=== PATIENT | male | born 1980 | race African-American/Black ===

== ENCOUNTER 2016-11-30 16:16 | Emergency (ER) | payer SELFPAY ==
[~2016-11-30] VITALS: Ht 180.3 cm; Wt 79.4 kg
[2016-11-30 17:08] VITALS: BP 115/85
--- NOTE | 2016-11-30 17:11 | PHYS DOC ---
Past Medical History Past Medical History: No Pertinent History Additional Past Medical Histor: BACK PAIN, KNEE PAIN, Past Surgical History: No Surgical History Alcohol Use: Occasionally Drug Use: None Adult General Chief Complaint Chief Complaint: ABSCESS HPI HPI Patient is a 36 year old male presents with an abscess to right mid thoracic back since Friday. Denies fever, chills, or recent antibiotic use. Reports abscess history in past. Review of Systems Review of Systems Constitutional: Denies fever or chills Eyes: Denies change in visual acuity, redness, or eye pain HENT: Denies nasal congestion or sore throat Respiratory: Denies cough or shortness of breath Cardiovascular: No additional information not addressed in HPI GI: Denies abdominal pain, nausea, vomiting, bloody stools or diarrhea : Denies dysuria or hematuria Musculoskeletal: Denies back pain or joint pain Integument: Abscess to back Neurologic: Denies headache, focal weakness or sensory changes [] Endocrine: Denies polyuria or polydipsia [] Current Medications Current Medications Current Medications Medications (Trade) Dose Ordered Sig/Jose Start Time Stop Time Status Last Admin Dose Admin Lidocaine/Sodium Bicarbonate (Buffered Lidocaine 1%) 20 ml 1X ONCE 11/30/16 17:15 11/30/16 17:16 DC 11/30/16 17:15 20 ML Allergies Allergies Allergies Coded Allergies Type Severity Reaction Last Updated Verified No Known Drug Allergies 01/10/14 No Physical Exam Physical Exam Constitutional: Well developed, well nourished, no acute distress, non-toxic appearance. HENT: Normocephalic, atraumatic, bilateral external ears normal, oropharynx moist, no oral exudates, nose normal. [] Eyes: PERRLA, EOMI, conjunctiva normal, no discharge. Neck: Normal range of motion, no tenderness, supple, no stridor. Cardiovascular:Heart rate regular rhythm, no murmur Lungs & Thorax: Bilateral breath sounds clear to auscultation Abdomen: Bowel sounds normal, soft, no tenderness, no masses, no pulsatile masses. Skin: 1.5 cm diameter abscess to right thoracic paraspinous. Back: No tenderness, no CVA tenderness. [] Extremities: No tenderness, no cyanosis, no clubbing, ROM intact, no edema. [] Neurologic: Alert and oriented X 3, normal motor function, normal sensory function, no focal deficits noted. [] Psychologic: Affect normal, judgement normal, mood normal. [] Current Patient Data Vital Signs Vital Signs Date Time Temp Pulse Resp B/P Pulse Ox O2 Delivery O2 Flow Rate FiO2 11/30/16 17:08 98.2 58 16 99 Room Air 98.2 EKG EKG [] Radiology/Procedures Radiology/Procedures Procedure note: 1.5cm abscess anesthetized with 1% buffered lidocaine and incised with #11 scapel. Small amount of thick white discharge expelled. Flushed iwth 50ml NS, and packed with 1/4 Iodoform. Patient tolerated well without diffiuclty. [] Impressions: 1. Abscess Course & Med Decision Making Course & Med Decision Making Pertinent Labs and Imaging studies reviewed. (See chart for details) [] Dragon Disclaimer Dragon Disclaimer This electronic medical record was generated, in whole or in part, using a voice recognition dictation system. Departure Departure Impression: Primary Impression: Cutaneous abscess Disposition: HOME, SELF-CARE Condition: STABLE Referrals: NO PCP (PCP) Patient Instructions: Abscess, Care After, Abscess, [id number] Additional Instructions: 1. Take medication as prescribed. 2. Remove packing in 48 hours 3. Return if problems or concerns. 4. Follow up with primary in 1-2 days Scripts Cephalexin 500 Mg Capsule1 Cap PO QID #40 CAP Prov:SILVINO LOUIS APRN 11/30/16 Problem Qualifiers Primary Impression: Cutaneous abscess Site of cutaneous abscess: trunk Site of cutaneous abscess of trunk: back Qualified Code: L02.212 - Cutaneous abscess of back [any part, except buttock] SILVINO LOUIS APRN Nov 30, 2016 17:11
[2016-11-30] MEDS ORDERED: LIDOCAINE 1% / SOD BICARB 8.4% 20 ML VIAL. IJ ONE (17:15)
[2016-11-30] MEDS ORDERED: CEPH500C PO (17:30)
== END 2016-11-30 17:46 | disposition home or self-care (01) ==
LOC: ER 16:16
DX: L02.212 Cutaneous abscess of back [any part, except buttock and flank] (principal)
CPT/HCPCS: 10060; 99283-25

== ENCOUNTER 2017-01-22 05:53 | Emergency (ER) | payer SELFPAY ==
[~2017-01-22] VITALS: Ht 180.3 cm; Wt 79.4 kg
[~2017-01-22 05:53] MED LIST: CEPH500C PO
[2017-01-22 06:10] VITALS: BP 134/86
--- NOTE | 2017-01-22 07:01 | PHYS DOC ---
Past Medical History Past Medical History: Other Additional Past Medical Histor: BACK PAIN, KNEE PAIN, Past Surgical History: No Surgical History Alcohol Use: Occasionally Drug Use: None Adult General Chief Complaint Chief Complaint: EARACHE/EAR PAIN [facility] HPI Patient is a 36 year old male who presents with ear pain. He states that when he was a child he injured his right ear when he had a cockroach crawled in it and they had to drown to it and remove it. He states ever since then he said some sensitivity in his right ear when he was riding the car and would hear the wind go by by his ear. He states he lost part of an ear ringing in his left ear and had adequate removed with forceps by a healthcare provider. 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 He states when the dumpster hits the garbage truck makes a loud metal noise and then when it sits back down on the ground again another loud noises heard. He states the noise makes his ears ringing and cause some discomfort for approximately 1 hour afterwards. He is requesting to be able to wear his removable over the ear hearing protectors when doing the above process. He states that his worker's requiring a note in order to wear this protection from a doctor. Currently he denies any pain, troubles with his ears, fevers chills nausea or vomiting. Review of Systems Review of Systems Constitutional: Denies fever or chills [] Eyes: Denies change in visual acuity, redness, or eye pain [] HENT: Denies nasal congestion or sore throat [] Respiratory: Denies cough or shortness of breath [] Cardiovascular: No additional information not addressed in HPI [] GI: Denies abdominal pain, nausea, vomiting, bloody stools or diarrhea [] : Denies dysuria or hematuria [] Musculoskeletal: Denies back pain or joint pain [] Integument: Denies rash or skin lesions [] Neurologic: Denies headache, focal weakness or sensory changes [] Endocrine: Denies polyuria or polydipsia [] Allergies Allergies Allergies Coded Allergies Type Severity Reaction Last Updated Verified No Known Drug Allergies 2/17/14 No Physical Exam Physical Exam Constitutional: Well developed, well nourished, no acute distress, non-toxic appearance. [] HENT: Normocephalic, atraumatic, right ear canal with mild to moderate cerumen or granulation tissue within the ear canal itself is reducing the size the ear canal by 25%, left TM normal-appearing with normal ear canal, bilateral external ears normal, oropharynx moist, no oral exudates, nose normal. [] Eyes: PERRLA, EOMI, conjunctiva normal, no discharge. [] Neck: Normal range of motion, no tenderness, supple, no stridor. [] Skin: Warm, dry, no erythema, no rash. [] Back: No tenderness, no CVA tenderness. [] Extremities: No tenderness, no cyanosis, no clubbing, ROM intact, no edema. [] Neurologic: Alert and oriented X 3, normal motor function, normal sensory function, no focal deficits noted. [] Psychologic: Affect normal, judgement normal, mood normal. [] Current Patient Data Vital Signs Vital Signs Date Time Temp Pulse Resp B/P Pulse Ox O2 Delivery O2 Flow Rate FiO2 01/22/17 06:10 97.2 60 16 99 Room Air 97.2 EKG EKG [] Radiology/Procedures Radiology/Procedures [] Impressions: Ear pain while working Course & Med Decision Making Course & Med Decision Making Pertinent Labs and Imaging studies reviewed. (See chart for details) I am not able to assess his hearing status in the emergency department. He is requesting a note to be able to wear his hearing protection while doing jobs with loud noises. I'm unsure if this interferes with his abilities perform his job safely. I recommend that he follow with an stitch marker and with his OSHA provider to make sure that this doesn't interfere with his job duties or his safety at work. I will write him a note states only during these 2 episodes of loud noises when the dumpster hits a truck and a suspect down that he can wear his hearing protector but he must take it off otherwise for his own safety. This of course cannot interfere with his job duties or with OSHA requirements and standards. 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 He can follow-up with Dr. Jay at [phone] and please call her office and tell her that you are from [place] any need to schedule appointment. Gavin Disclaimer Delfinoon Disclaimer This electronic medical record was generated, in whole or in part, using a voice recognition dictation system. 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 You will need to remove your hearing protection when not doing this task. I do not want you to wear your hearing protection at other times, other than dumping the dumpster into the truck and setting it back on the ground, as it can interfere with your safety and the safety of the other people around you if you cannot hear the people around you trying to talk to you. You will need to contact your OSHA sales representative livestock to make sure that this does not interfere with your safety on the job and the safety of the other people around you. You will also need to follow-up with an stitch marker and an ears nose and throat physician to look at the mass the your right ear canal and have a hearing test preformed. If policies are in place by your work place or OSHA that prevents you from wearing your hearing protection during this process than their policies supersedes my recommendations. You can follow-up with Dr. Jay at [phone] and please call her office and tell her that you are from [place] any need to schedule appointment. JUNIOR ARANA MD Jan 22, 2017 07:01
== END 2017-01-22 07:22 | disposition home or self-care (01) ==
LOC: ER 05:53
DX: H93.8X1 Other specified disorders of right ear (principal)
CPT/HCPCS: 99281

== ENCOUNTER 2017-10-24 19:40 | Emergency (ER) | payer SELFPAY ==
[~2017-10-24] VITALS: Ht 180.3 cm; Wt 81.6 kg
[2017-10-24] MEDS ORDERED: NAPR-683 PO (20:21)
[2017-10-24] MEDS ORDERED: SULF1TAB24 PO (20:21)
--- NOTE | 2017-10-24 20:21 | PHYS DOC ---
Past Medical History Past Medical History: Other Additional Past Medical Histor: BACK PAIN, KNEE PAIN, Past Surgical History: No Surgical History Alcohol Use: Occasionally Drug Use: None Adult General Chief Complaint Chief Complaint: SKIN RASH/ABSCESS [facility] HPI Patient is a 37 year old male presents to the emergency department with complaints of an abscess on the chest. He states his been present for 3 days. He 's had no fever. He reports a long-standing history of intermittent abscesses. Review of Systems Review of Systems Constitutional: Denies fever or chills [] Eyes: Denies change in visual acuity, redness, or eye pain [] HENT: Denies nasal congestion or sore throat [] Respiratory: Denies cough or shortness of breath [] Cardiovascular: No additional information not addressed in HPI [] GI: Denies abdominal pain, nausea, vomiting, bloody stools or diarrhea [] : Denies dysuria or hematuria [] Musculoskeletal: Denies back pain or joint pain [] Integument: Abscess Neurologic: Denies headache, focal weakness or sensory changes [] Endocrine: Denies polyuria or polydipsia [] All other systems were reviewed and found to be within normal limits, except as documented in this note. Allergies Allergies Allergies Coded Allergies Type Severity Reaction Last Updated Verified No Known Drug Allergies 01/10/14 No Physical Exam Physical Exam Constitutional: Well developed, well nourished, no acute distress, non-toxic appearance. [] Neck: Normal range of motion, no tenderness, supple without lymphadenopathy, no stridor. [] Cardiovascular:Heart rate regular rhythm, no murmur [] Lungs & Thorax: Bilateral breath sounds clear to auscultation [] Skin: Warm, dry, upper chest, medial, 1 cm pustule no surrounding erythema. EKG EKG [] Radiology/Procedures Radiology/Procedures [] Course & Med Decision Making Course & Med Decision Making Procedure note: The pustule cleansed with Betadine. A #18-gauge used to perforate the pustule. Small amount of purulent discharge. Patient tolerated well. Dressing applied. Pertinent Labs and Imaging studies reviewed. (See chart for details) [] Dragon Disclaimer Dragon Disclaimer This electronic medical record was generated, in whole or in part, using a voice recognition dictation system. Departure Departure Impression: Primary Impression: Cutaneous abscess Disposition: HOME, SELF-CARE Condition: STABLE Referrals: NO PCP (PCP) [facility] [place] Patient Instructions: Abscess, Care After Scripts Naproxen (NAPROSYN) 500 Mg Tablet 500 MG PO BID Y for PAIN, #20 TAB Prov: RAJESH GALLO APRN 10/24/17 Sulfamethoxazole/Trimethoprim (BACTRIM DS TABLET) 1 Each Tablet 1 TAB PO BID, #20 TAB Prov: RAJESH GALLO APRN 10/24/17 Problem Qualifiers Primary Impression: Cutaneous abscess Site of cutaneous abscess: trunk Site of cutaneous abscess of trunk: chest wall Qualified Codes: L02.213 - Cutaneous abscess of chest wall RAJESH GALLO APRN Oct 24, 2017 20:21
[2017-10-24 20:46] VITALS: BP 121/80
== END 2017-10-24 20:55 | disposition home or self-care (01) ==
LOC: ER 19:40
DX: L02.213 Cutaneous abscess of chest wall (principal)
CPT/HCPCS: 10160; 99284-25

== ENCOUNTER 2017-11-05 10:23 | Emergency (ER) | payer SELFPAY ==
[~2017-11-05] VITALS: Ht 180.3 cm; Wt 79.4 kg
[~2017-11-05 10:23] MED LIST changes: +NAPR-683 PO; +SULF1TAB24 PO
[2017-11-05 10:37] VITALS: BP 133/81
[2017-11-05] MEDS ORDERED: [UNRECOGNIZED DRUG - CODE] MC (10:55)
[2017-11-05] MEDS ORDERED: FLUC200T4 PO (10:55)
--- NOTE | 2017-11-05 10:55 | PHYS DOC ---
Past Medical History Past Medical History: Other Additional Past Medical Histor: BACK PAIN, KNEE PAIN, Past Surgical History: No Surgical History Alcohol Use: None Drug Use: None Adult General Chief Complaint Chief Complaint: SKIN RASH/ABSCESS HPI HPI Patient is a 37 year old -[place] male with no significant medical history who presents today complaining of patch like rash on his face and neck that began a week ago. Patient denies any known cause for this rash. Review of Systems Review of Systems Constitutional: Denies fever or chills [] Musculoskeletal: Denies back pain or joint pain [] Integument: patch like rash on his face and neck Neurologic: Denies headache, focal weakness or sensory changes [] All other systems were reviewed and found to be within normal limits, except as documented in this note. Allergies Allergies Allergies Coded Allergies Type Severity Reaction Last Updated Verified No Known Drug Allergies 01/10/14 No Physical Exam Physical Exam Constitutional: Well developed, well nourished, no acute distress, non-toxic appearance. [] Skin: Warm, dry, this is an male with patch like discoloration lesions on the face and neck suspicious of tinea versicolor. Back: No tenderness, no CVA tenderness. [] Extremities: No tenderness, no cyanosis, no clubbing, ROM intact, no edema. [] Neurologic: Alert and oriented X 3, normal motor function, normal sensory function, no focal deficits noted. [] Psychologic: Affect normal, judgement normal, mood normal. [] Current Patient Data Vital Signs Vital Signs Date Time Temp Pulse Resp B/P (MAP) Pulse Ox O2 Delivery O2 Flow Rate FiO2 11/05/17 10:37 98.0 69 18 99 Room Air 98.0 EKG EKG [] Radiology/Procedures Radiology/Procedures [] Course & Med Decision Making Course & Med Decision Making Pertinent Labs and Imaging studies reviewed. (See chart for details) Patient has tinea vesicular rash on his face. He was discharged with fluconazole and ketoconazole. Patient was provided a carry out clerk for follow- up in the next 2-4 weeks. Dragon Disclaimer Dragon Disclaimer This electronic medical record was generated, in whole or in part, using a voice recognition dictation system. Departure Departure Impression: Primary Impression: Tinea versicolor Disposition: HOME, SELF-CARE Condition: STABLE Referrals: NO PCP (PCP) MARC MILLS MD follow up in 2-4 weeks Patient Instructions: Tinea Versicolor (Yeast Infection of the Skin) Additional Instructions: You were seen with a rash suspicious of tinea versicolor. Use the prescribed medication as ordered. Follow-up with the provided carry out clerk in the next 2- 4 weeks. Scripts Ketoconazole (Ketoconazole) 25 Gm Crystals 25 GM MC BID, #1 MISC 1 Refill Use until lessions have cleared completely Prov: ERIC JONES APRN 11/05/17 Fluconazole (FLUCONAZOLE) 200 Mg Tablet 400 TAB PO ONCE, #2 TAB Prov: ERIC JONES APRN 11/05/17 ERIC JONES APRN Nov 05, 2017 10:55
== END 2017-11-05 11:05 | disposition home or self-care (01) ==
LOC: ER 10:23
DX: B36.0 Pityriasis versicolor (principal)
CPT/HCPCS: 99283

== ENCOUNTER 2017-12-29 23:11 | Emergency (ER) | payer SELFPAY ==
[2017-12-29 23:49] LABS: ADD MAN DIFF? NO
[2017-12-29 23:53] LABS: BASO # 0.1 x10^3/uL (0.0-0.2); BASO % 2 % (0-3); BILIRUBIN,URINE NEGATIVE (NEG); CLARITY,URINE CLEAR; COLOR,URINE YELLOW; EOS # 0.1 x10^3/uL (0.0-0.7); EOS % 2 % (0-3); GLUCOSE,URINE NEGATIVE (NEG); HEMATOCRIT 45.6 % (39.0-53.0); HEMOGLOBIN 15.7 g/dL (13.0-17.5); LYMPH # 1.3 x10^3/uL (1.0-4.8); LYMPH % 17 % (24-48); MEAN CORPUSCULAR HEMOGLOBIN 34 pg (25-35); MEAN CORPUSCULAR HGB CONC 34 g/dL (31-37); MEAN CORPUSCULAR VOLUME 99 fL (79-100); MONO # 0.5 x10^3/uL (0.0-1.1); MONO % 6 % (0-9); NEUT # 5.6 x10^3uL (1.8-7.7); NEUT % 73 % (31-73); NITRITE,URINE NEGATIVE (NEG); PH,URINE 5.5; PLATELET COUNT 385 x10^3/uL (140-400); PROTEIN,URINE NEGATIVE (NEG-TRACE); RED BLOOD COUNT 4.62 x10^6/uL (4.30-5.70); RED CELL DISTRIBUTION WIDTH 15.3 % (11.5-14.5); UROBILINOGEN,URINE 0.2 mg/dL (0.2 mg/dL); WHITE BLOOD COUNT 7.6 x10^3/uL (4.0-11.0)
[2017-12-29 23:57] LABS: BACTERIA,URINE 0 /HPF (0-FEW); HYALINE CASTS, URINE FEW /HPF; RBC,URINE 0 /HPF (0-2); SQUAMOUS EPITHELIAL CELL,UR OCC /LPF; WBC,URINE OCC /HPF (0-4)
[2017-12-29 23:59] LABS: BARBITURATES NEG (NEG); BENZODIAZEPINES NEG (NEG); CANNABINOIDS NEG (NEG); COCAINE POS (NEG); METHADONE NEG (NEG); OPIATES NEG (NEG); PHENCYCLIDINE NEG (NEG)
[2017-12-30] LABS: AMPHETAMINE/METHAMPHETAMINE NEG (NEG); ETHANOL, URINE POS (NEG)
[2017-12-30 00:06] LABS: ANION GAP 16 (6-14); BLOOD UREA NITROGEN 21 mg/dL (8-26); BUN/CREATININE RATIO 16 (6-20); CALCIUM 9.6 mg/dL (8.5-10.1); CARBON DIOXIDE 23 mmol/L (21-32); CHLORIDE 103 mmol/L (98-107); CREATININE 1.3 mg/dL (0.7-1.3); GFR 74.4; GLUCOSE 114 mg/dL (70-99); POTASSIUM 3.5 mmol/L (3.5-5.1); SODIUM 142 mmol/L (136-145)
[2017-12-30 00:11] LABS: ETHANOL 102 mg/dL (0-10)
[2017-12-30 00:12] LABS: ALBUMIN 4.4 g/dL (3.4-5.0); ALK PHOS 61 U/L (46-116); ALT (SGPT) 68 U/L (16-63); AST (SGOT) 60 U/L (15-37); TOTAL BILIRUBIN 0.2 mg/dL (0.2-1.0)
[2017-12-30] MEDS: IV NORMAL SALINE 1000ML BAG 1,000 ML IV ×2 (00:12)
== END 2017-12-30 01:25 | disposition left against medical advice (07) ==
LOC: ER 23:11
DX: R45.851 Suicidal ideations (principal); F10.10 Alcohol abuse, uncomplicated; F14.10 Cocaine abuse, uncomplicated; F32.9 Major depressive disorder, single episode, unspecified; F20.9 Schizophrenia, unspecified; F17.200 Nicotine dependence, unspecified, uncomplicated; Y90.5 Blood alcohol level of 100-119 mg/100 ml
CPT/HCPCS: 36415; 80053; 80307; 81001; 85025; 93005; 96361; 96374; 99285-25; G0480; J2060; J7030

== ENCOUNTER 2018-02-05 22:33 | Emergency (ER) | payer SELFPAY ==
[2018-02-05 23:26] LABS: ADD MAN DIFF? NO
[2018-02-05 23:28] LABS: BASO # 0.1 x10^3/uL (0.0-0.2); BASO % 1 % (0-3); EOS # 0.2 x10^3/uL (0.0-0.7); EOS % 2 % (0-3); HEMATOCRIT 45.5 % (39.0-53.0); HEMOGLOBIN 15.4 g/dL (13.0-17.5); LYMPH # 2.5 x10^3/uL (1.0-4.8); LYMPH % 27 % (24-48); MEAN CORPUSCULAR HEMOGLOBIN 34 pg (25-35); MEAN CORPUSCULAR HGB CONC 34 g/dL (31-37); MEAN CORPUSCULAR VOLUME 101 fL (79-100); MONO # 0.6 x10^3/uL (0.0-1.1); MONO % 6 % (0-9); NEUT # 5.9 x10^3uL (1.8-7.7); NEUT % 64 % (31-73); PLATELET COUNT 358 x10^3/uL (140-400); RED BLOOD COUNT 4.52 x10^6/uL (4.30-5.70); RED CELL DISTRIBUTION WIDTH 14.8 % (11.5-14.5); WHITE BLOOD COUNT 9.3 x10^3/uL (4.0-11.0)
[2018-02-05] MEDS: IV NORMAL SALINE 1000ML BAG 1,000 ML IV ×2 (23:30)
[2018-02-05 23:35] LABS: ANION GAP 10 (6-14); BLOOD UREA NITROGEN 9 mg/dL (8-26); BUN/CREATININE RATIO 8 (6-20); CALCIUM 8.8 mg/dL (8.5-10.1); CARBON DIOXIDE 25 mmol/L (21-32); CHLORIDE 106 mmol/L (98-107); CREATININE 1.1 mg/dL (0.7-1.3); GFR 90.2; GLUCOSE 98 mg/dL (70-99); POTASSIUM 3.3 mmol/L (3.5-5.1); SODIUM 141 mmol/L (136-145)
[2018-02-05 23:37] LABS: BILIRUBIN,URINE NEGATIVE (NEG); CLARITY,URINE CLEAR; COLOR,URINE YELLOW; GLUCOSE,URINE NEGATIVE (NEG); NITRITE,URINE NEGATIVE (NEG); PROTEIN,URINE 30 mg/dL (NEG-TRACE); UROBILINOGEN,URINE 0.2 mg/dL (0.2 mg/dL)
[2018-02-05 23:40] LABS: ETHANOL 209 mg/dL (0-10)
[2018-02-05 23:41] LABS: ALBUMIN/GLOBULIN RATIO 0.9 (1.0-1.7); ALK PHOS 61 U/L (46-116); ALT (SGPT) 70 U/L (16-63); AST (SGOT) 35 U/L (15-37); LIPASE 108 U/L (73-393); TOTAL BILIRUBIN 0.1 mg/dL (0.2-1.0); TOTAL PROTEIN 8.3 g/dL (6.4-8.2)
[2018-02-05 23:42] LABS: BACTERIA,URINE 0 /HPF (0-FEW); RBC,URINE 0 /HPF (0-2); SQUAMOUS EPITHELIAL CELL,UR FEW /LPF; WBC,URINE OCC /HPF (0-4)
[2018-02-05 23:43] LABS: AMORPHOUS SEDIMENT,UR PRESENT /HPF; AMPHETAMINE/METHAMPHETAMINE NEG (NEG); BARBITURATES NEG (NEG); BENZODIAZEPINES NEG (NEG); CANNABINOIDS NEG (NEG); COCAINE POS (NEG); ETHANOL, URINE POS (NEG); HYALINE CASTS, URINE MODERATE /HPF; METHADONE NEG (NEG); OPIATES NEG (NEG); PHENCYCLIDINE NEG (NEG)
== END 2018-02-06 00:55 | disposition home or self-care (01) ==
LOC: ER 02-06 00:55
DX: F10.10 Alcohol abuse, uncomplicated (principal); F14.10 Cocaine abuse, uncomplicated; R45.851 Suicidal ideations; R00.0 Tachycardia, unspecified; Y90.7 Blood alcohol level of 200-239 mg/100 ml
CPT/HCPCS: 36415; 71045; 80053; 80307; 81001; 83690; 85025; 93005; 96360; 99285-25; G0480; J7030

== ENCOUNTER 2018-02-20 21:20 | Emergency (ER) | payer SELFPAY ==
[2018-02-20 21:50] LABS: ADD MAN DIFF? NO
[2018-02-20 21:53] LABS: BASO % 0 % (0-3); EOS # 0.1 x10^3/uL (0.0-0.7); EOS % 2 % (0-3); HEMATOCRIT 46.9 % (39.0-53.0); HEMOGLOBIN 15.9 g/dL (13.0-17.5); LYMPH # 2.4 x10^3/uL (1.0-4.8); LYMPH % 39 % (24-48); MEAN CORPUSCULAR HEMOGLOBIN 34 pg (25-35); MEAN CORPUSCULAR HGB CONC 34 g/dL (31-37); MEAN CORPUSCULAR VOLUME 100 fL (79-100); MONO # 0.5 x10^3/uL (0.0-1.1); MONO % 9 % (0-9); NEUT % 50 % (31-73); PLATELET COUNT 358 x10^3/uL (140-400); RED CELL DISTRIBUTION WIDTH 14.5 % (11.5-14.5)
[2018-02-20] MEDS ORDERED: LABETALOL 20 MG/4 ML DISP.SYRIN. IVP (22:00)
[2018-02-20] MEDS ORDERED: ONDANSETRON PF 4 MG/2 ML VIAL. IV (22:00)
[2018-02-20] MEDS ORDERED: IV NORMAL SALINE 1000ML BAG 1,000 ML IV (22:00)
[2018-02-20 22:03] LABS: BILIRUBIN,URINE NEGATIVE (NEG); CLARITY,URINE CLEAR; COLOR,URINE YELLOW; GLUCOSE,URINE NEGATIVE (NEG); NITRITE,URINE NEGATIVE (NEG); PH,URINE 5.5; PROTEIN,URINE NEGATIVE (NEG-TRACE); UROBILINOGEN,URINE 0.2 mg/dL (0.2 mg/dL)
[2018-02-20 22:04] LABS: ANION GAP 15 (6-14); BLOOD UREA NITROGEN 12 mg/dL (8-26); BUN/CREATININE RATIO 10 (6-20); CALCIUM 8.7 mg/dL (8.5-10.1); CARBON DIOXIDE 23 mmol/L (21-32); CHLORIDE 103 mmol/L (98-107); CREATININE 1.2 mg/dL (0.7-1.3); GFR 81.6; GLUCOSE 110 mg/dL (70-99); POTASSIUM 3.5 mmol/L (3.5-5.1); SODIUM 141 mmol/L (136-145)
[2018-02-20 22:06] LABS: ACETAMIN < 2 mcg/ml (10-30); ETHANOL 198 mg/dL (0-10); SALIC < 2.8 mg/dL (2.8-20.0)
[2018-02-20 22:09] LABS: ALBUMIN 4.2 g/dL (3.4-5.0); ALK PHOS 58 U/L (46-116); ALT (SGPT) 72 U/L (16-63); AST (SGOT) 32 U/L (15-37); BARBITURATES NEG (NEG); BENZODIAZEPINES NEG (NEG); CANNABINOIDS NEG (NEG); COCAINE POS (NEG); METHADONE NEG (NEG); OPIATES NEG (NEG); PHENCYCLIDINE NEG (NEG); TOTAL BILIRUBIN 0.1 mg/dL (0.2-1.0); TOTAL PROTEIN 8.5 g/dL (6.4-8.2)
[2018-02-20 22:10] LABS: AMPHETAMINE/METHAMPHETAMINE NEG (NEG); ETHANOL, URINE POS (NEG)
[2018-02-20 22:10] LABS: TROPONINI < 0.017 ng/mL (0.000-0.055)
[2018-02-20 22:14] LABS: RBC,URINE 0 /HPF (0-2)
[2018-02-20 22:15] LABS: BACTERIA,URINE 0 /HPF (0-FEW); SQUAMOUS EPITHELIAL CELL,UR OCC /LPF; WBC,URINE RARE /HPF (0-4)
[2018-02-20 22:16] LABS: THYROID STIM HORMONE (TSH) 1.323 uIU/mL (0.358-3.74)
[2018-02-20 22:18] LABS: CKMB INDEX 0.6 % (0-4); CKMB MASS 1.8 ng/mL (0.0-3.6); CREATINE KINASE 301 U/L (39-308)
[2018-02-20] MEDS ORDERED: LORazepam 1 MG TABLET PO (23:00)
== END 2018-02-20 23:35 | disposition home or self-care (01) ==
LOC: ER 21:20
DX: F10.10 Alcohol abuse, uncomplicated (principal); F14.10 Cocaine abuse, uncomplicated; R46.89 Other symptoms and signs involving appearance and behavior; R45.851 Suicidal ideations; F32.9 Major depressive disorder, single episode, unspecified; F17.220 Nicotine dependence, chewing tobacco, uncomplicated; Z59.0 Homelessness
CPT/HCPCS: 36415; 80053; 80307; 80329; 81001; 82553; 84443; 84484; 85025; 93005; 99285-25; G0480

== ENCOUNTER 2018-03-08 14:48 | Emergency (ER) | payer SELFPAY | END 2018-03-08 15:38 | disposition home or self-care (01) | LOC: ER 15:38 | DX: S46.911A Strain of unspecified muscle, fascia and tendon at shoulder and upper arm level, right arm, initial encounter (principal); F14.10 Cocaine abuse, uncomplicated; F10.10 Alcohol abuse, uncomplicated; X58.XXXA Exposure to other specified factors, initial encounter; Y93.89 Activity, other specified; Y99.8 Other external cause status; Y92.89 Other specified places as the place of occurrence of the external cause | CPT/HCPCS: 99281 ==

== ENCOUNTER 2018-03-27 23:47 | Emergency (ER) | payer SELFPAY ==
[2018-03-28 00:09] LABS: ADD MAN DIFF? NO; BASO # 0.1 x10^3/uL (0.0-0.2); BASO % 1 % (0-3); EOS % 0 % (0-3); HEMATOCRIT 41.4 % (39.0-53.0); HEMOGLOBIN 14.5 g/dL (13.0-17.5); LYMPH # 0.9 x10^3/uL (1.0-4.8); LYMPH % 14 % (24-48); MEAN CORPUSCULAR HEMOGLOBIN 35 pg (25-35); MEAN CORPUSCULAR HGB CONC 35 g/dL (31-37); MEAN CORPUSCULAR VOLUME 99 fL (79-100); MONO # 0.3 x10^3/uL (0.0-1.1); MONO % 4 % (0-9); NEUT # 5.4 x10^3uL (1.8-7.7); NEUT % 81 % (31-73); PLATELET COUNT 371 x10^3/uL (140-400); RED BLOOD COUNT 4.17 x10^6/uL (4.30-5.70); WHITE BLOOD COUNT 6.7 x10^3/uL (4.0-11.0)
[2018-03-28 00:12] LABS: BILIRUBIN,URINE NEGATIVE (NEG); CLARITY,URINE TURBID; COLOR,URINE YELLOW; GLUCOSE,URINE NEGATIVE (NEG); NITRITE,URINE NEGATIVE (NEG); PH,URINE 5.5; PROTEIN,URINE 30 mg/dL (NEG-TRACE); UROBILINOGEN,URINE 0.2 mg/dL (0.2 mg/dL)
[2018-03-28 00:18] LABS: ANION GAP 12 (6-14); BARBITURATES NEG (NEG); BENZODIAZEPINES NEG (NEG); BLOOD UREA NITROGEN 13 mg/dL (8-26); BUN/CREATININE RATIO 11 (6-20); CALCIUM 8.6 mg/dL (8.5-10.1); CANNABINOIDS NEG (NEG); CARBON DIOXIDE 24 mmol/L (21-32); CHLORIDE 107 mmol/L (98-107); COCAINE POS (NEG); CREATININE 1.2 mg/dL (0.7-1.3); GFR 81.6; GLUCOSE 90 mg/dL (70-99); METHADONE NEG (NEG); OPIATES NEG (NEG); PHENCYCLIDINE NEG (NEG); POTASSIUM 3.6 mmol/L (3.5-5.1); SODIUM 143 mmol/L (136-145)
[2018-03-28 00:20] LABS: AMPHETAMINE/METHAMPHETAMINE NEG (NEG); ETHANOL, URINE POS (NEG)
[2018-03-28 00:20] LABS: ETHANOL 193 mg/dL (0-10)
[2018-03-28 00:23] LABS: BACTERIA,URINE 0 /HPF (0-FEW); HYALINE CASTS, URINE MANY /HPF; RBC,URINE OCC /HPF (0-2); SQUAMOUS EPITHELIAL CELL,UR FEW /LPF; WBC,URINE OCC /HPF (0-4)
[2018-03-28 00:24] LABS: ALBUMIN 3.7 g/dL (3.4-5.0); ALBUMIN/GLOBULIN RATIO 0.8 (1.0-1.7); ALK PHOS 63 U/L (46-116); ALT (SGPT) 45 U/L (16-63); AST (SGOT) 24 U/L (15-37); TOTAL BILIRUBIN 0.2 mg/dL (0.2-1.0); TOTAL PROTEIN 8.2 g/dL (6.4-8.2)
== END 2018-03-28 00:48 | disposition home or self-care (01) ==
LOC: ER 23:47
DX: F14.90 Cocaine use, unspecified, uncomplicated (principal)
CPT/HCPCS: 36415; 80053; 80307; 81001; 84443; 85025; 99284; G0480

== ENCOUNTER 2018-06-01 23:32 | Emergency (ER) | payer SELFPAY ==
[2018-06-01 23:59] LABS: ADD MAN DIFF? NO
[2018-06-02] MEDS: IV NORMAL SALINE 1000ML BAG 1,000 ML IV
[2018-06-02 00:01] LABS: BASO # 0.1 x10^3/uL (0.0-0.2); BASO % 1 % (0-3); EOS % 1 % (0-3); HEMATOCRIT 41.7 % (39.0-53.0); HEMOGLOBIN 14.3 g/dL (13.0-17.5); LYMPH # 2.1 x10^3/uL (1.0-4.8); LYMPH % 22 % (24-48); MEAN CORPUSCULAR HEMOGLOBIN 34 pg (25-35); MEAN CORPUSCULAR HGB CONC 34 g/dL (31-37); MEAN CORPUSCULAR VOLUME 100 fL (79-100); MONO # 0.5 x10^3/uL (0.0-1.1); MONO % 6 % (0-9); NEUT # 6.7 x10^3uL (1.8-7.7); NEUT % 71 % (31-73); PLATELET COUNT 333 x10^3/uL (140-400); RED BLOOD COUNT 4.18 x10^6/uL (4.30-5.70); WHITE BLOOD COUNT 9.4 x10^3/uL (4.0-11.0)
[2018-06-02 00:09] LABS: ANION GAP 11 (6-14); BLOOD UREA NITROGEN 13 mg/dL (8-26); BUN/CREATININE RATIO 9 (6-20); CALCIUM 8.3 mg/dL (8.5-10.1); CARBON DIOXIDE 24 mmol/L (21-32); CHLORIDE 105 mmol/L (98-107); CREATININE 1.4 mg/dL (0.7-1.3); GFR 68.3; GLUCOSE 122 mg/dL (70-99); POTASSIUM 3.9 mmol/L (3.5-5.1); PROTHROMBIN TIME PATIENT 12.9 SEC (11.7-14.0); SODIUM 140 mmol/L (136-145)
[2018-06-02 00:11] LABS: ETHANOL 117 mg/dL (0-10)
[2018-06-02 00:15] LABS: ALBUMIN 4.1 g/dL (3.4-5.0); ALK PHOS 71 U/L (46-116); ALT (SGPT) 38 U/L (16-63); AST (SGOT) 22 U/L (15-37); CREATINE KINASE 302 U/L (39-308); MAGNESIUM 1.9 mg/dL (1.8-2.4); TOTAL BILIRUBIN 0.2 mg/dL (0.2-1.0); TOTAL PROTEIN 8.1 g/dL (6.4-8.2)
[2018-06-02 00:19] LABS: TROPONINI < 0.017 ng/mL (0.000-0.055)
[2018-06-02 00:20] LABS: BARBITURATES NEG (NEG); BENZODIAZEPINES NEG (NEG); CANNABINOIDS NEG (NEG); COCAINE POS (NEG); METHADONE NEG (NEG); OPIATES NEG (NEG); PHENCYCLIDINE NEG (NEG)
[2018-06-02 00:21] LABS: AMPHETAMINE/METHAMPHETAMINE NEG (NEG); ETHANOL, URINE POS (NEG)
== END 2018-06-02 01:01 | disposition home or self-care (01) ==
LOC: ER 06-02 01:01
DX: F14.10 Cocaine abuse, uncomplicated (principal); F22 Delusional disorders; R45.851 Suicidal ideations; R06.02 Shortness of breath; F10.10 Alcohol abuse, uncomplicated
CPT/HCPCS: 36415; 71045; 80053; 80307; 82550; 83735; 84484; 85025; 85610; 93005; 96374; 99285-25; G0480; J2060; J7030

== ENCOUNTER 2019-01-22 16:02 | Emergency (ER) | payer SELFPAY ==
[~2019-01-22] VITALS: Ht 180.3 cm; Wt 79.4 kg
[~2019-01-22 16:02] MED LIST changes: +FLUC200T4 PO; +[UNRECOGNIZED DRUG - CODE] MC
[2019-01-22 16:15] VITALS: BP 139/74
[2019-01-22] MEDS ORDERED: IBUPROFEN 400 MG TABLET. PO ONE (16:30)
[2019-01-22] MEDS ORDERED: IBUPROFEN 200 MG TABLET. PO ONE (16:30)
[2019-01-22] MEDS ORDERED: ERYT1OIN6 OP (16:33)
--- NOTE | 2019-01-22 16:33 | PHYS DOC ---
Past Medical History Past Medical History: Other Additional Past Medical Histor: BACK PAIN, KNEE PAIN, (NATASHA HORTON APRN) Past Surgical History: No Surgical History (NATASHA HORTON APRN) Alcohol Use: Heavy Drug Use: Cocaine (NATASHA HORTON APRN) Adult General Chief Complaint Chief Complaint: EYE PROBLEMS HPI HPI 38-year-old male presents to ER with complaints of left lower eyelid swelling a nd tenderness. Patient reports that he woke up yesterday morning and noticed his left lower eyelid to be tender with small amount of swelling on the inner corner. Patient denies any eye pain, vision changes, dizziness, or headache. Patient states the redness improved today but he still had swelling and tenderness at the site so he came to the ER for evaluation. Patient denies any k nown injury. Patient denies wearing contact lenses or corrective glasses. Eyes any previous eye issues. He denies being around anybody with conjunctivitis. He denies any eye redness. He reports only symptom to be swelling at the left lower eyelid. (NATASHA HORTON APRN) Review of Systems Review of Systems Constitutional: Denies fever or chills [] Eyes: Denies change in visual acuity, redness, or eye pain. Reports lt lower eye lid swelling/irritation HENT: Denies nasal congestion or sore throat [] Respiratory: Denies cough or shortness of breath [] Cardiovascular: No additional information not addressed in HPI [] GI: Denies abdominal pain, nausea, vomiting, bloody stools or diarrhea [] Musculoskeletal: Denies back/neck pain or joint pain [] Integument: Denies rash or skin lesions [] Neurologic: Denies headache, focal weakness or sensory changes. Denies dizziness All other systems were reviewed and found to be within normal limits, except as documented in this note. (NATASHA HORTON APRN) Current Medications Current Medications Current Medications Medications (Trade) Dose Ordered Sig/Jose Start Time Stop Time Status Last Admin Dose Admin Ibuprofen (Motrin) 600 mg 1X ONCE 01/22/19 16:30 01/22/19 16:31 DC 01/22/19 16:40 600 MG (YOVANA NOGUERA DO) Allergies Allergies Allergies Coded Allergies Type Severity Reaction Last Updated Verified Penicillins Allergy Unknown 03/15/19 Yes (NOGUERA,YOVANA R DO) Physical Exam Physical Exam Constitutional: Well developed, well nourished, no acute distress, non-toxic appearance. [] HENT: Normocephalic, atraumatic, bilateral ears normal, oropharynx moist, no oral exudates, nose normal. [] Eyes: PERRLA, EOMI- no eye pain with movements, no nystagmus, conjunctiva/sclera normal, no discharge. Lt lower eye lid with sm. area of swelling/mild erythema localized to small round area on outer lower lid- appearance of stye developing. No drainage. Lt upper eye lid NL exam- no swelling/erythema. Pt able to open/close eye without difficulty or c/o pain Neck: Normal range of motion, no tenderness, supple, no stridor. [] Cardiovascular:Heart rate regular rhythm, no murmur [] Lungs & Thorax: Bilateral breath sounds clear to auscultation [] Skin: Warm, dry, no rash. [] Extremities: No tenderness, no cyanosis, no clubbing, ROM intact, no edema. [] Neurologic: Alert and oriented X 3, normal motor function, normal sensory function, no focal deficits noted. [] Psychologic: Affect normal, judgement normal, mood normal. [] (NATASHA HORTON APRN) EKG EKG [] (NATASHA HORTON APRN) Radiology/Procedures Radiology/Procedures [] (NATASHA HORTON APRN) Course & Med Decision Making Course & Med Decision Making Pt was evaluated in the ER for complaints of left lower eyelid swelling with redness. Patient had NL visual acuity. Patient denied eye pain or vision changes. Pt denied injury to lt eye. Patient was found to have possible developing stye on left lower medial eyelid with external swelling and redness noted on exam patient had no inner redness on left lower eyelid. No foreign body found on exam of left eye. Discussed warm compress to eye every 3-4 hrs for 20- 30 min. at a time. Advised if sxs persist or wth concerns pt to f/u with PCP and/or opthalmo. for re-eval and further care. Per pt's request dose of Ibuprofen was provided. Pt had requested antibiotics- discussion had with pt regarding no antibx needed for current sxs with education that if worsen then he should be re-evaluated by PCP/opthalm. (NATASHA HORTON APRN) Dragon Disclaimer Dragon Disclaimer This electronic medical record was generated, in whole or in part, using a voice recognition dictation system. (NATASHA HORTON APRN) Departure Departure Impression: Primary Impression: Swelling of left eyelid Disposition: HOME, SELF-CARE Condition: STABLE Referrals: NO PCP (PCP) Patient Instructions: Sty Additional Instructions: You were evaluated in the Emergency Department for left lower eyelid swelling. There was no visible signs of an insect bite. Your vision test was normal limits in both eyes. As advised apply cool or warm compress to site every 3-4 hours for 20-30 minutes at a time. Avoid vigorous rubbing of eye to prevent increased swelling. There was concerns for possible stye so you are being provided with educational material which provide signs and symptoms to monitor for. You are being provided with prescription for erythromycin ointment and if signs of a stye occur then fill this prescription and use as directed. Follow-up with primary doctor for re-evaluation if symptoms persist or with any concerns. If you develop vision changes/eye pain and unable to get into primary doctor return to Emergency Department for re-evaluation and further care or horticultural therapist. Scripts No Active Prescriptions or Reported Meds Attending Signature Attending Signature I have reviewed the PA/BORDER PATROL AGENT's note and plan of care. I was available for consultation as needed during the patient's visit in the emergency department. I agree with the clinical impression, plan, and disposition. (YOVANA NOGUERA DO) NATASHA HORTON APRN Jan 22, 2019 16:33 YOVANA NOGUERA DO April 03, 2019 08:32
== END 2019-01-22 16:35 | disposition home or self-care (01) ==
LOC: ER 16:02
DX: H02.845 Edema of left lower eyelid (principal); F10.20 Alcohol dependence, uncomplicated; Y90.9 Presence of alcohol in blood, level not specified
CPT/HCPCS: 99283

== ENCOUNTER 2019-02-13 13:13 | Emergency (ER) | payer SELFPAY ==
[~2019-02-13] VITALS: Ht 180.3 cm; Wt 83.9 kg
[~2019-02-13 13:13] MED LIST changes: +ERYT1OIN6 OP
[2019-02-13] MEDS ORDERED: ONDANSETRON ODT 4 MG TAB.RAPDIS. PO ONE (15:00)
[2019-02-13] MEDS ORDERED: AZITHROMYCIN 250 MG TABLET. PO ONE (15:00)
[2019-02-13] MEDS ORDERED: cefTRIAXone IM 250 MG VIAL IM ONE (15:00)
[2019-02-13] MEDS ORDERED: PENICILLIN G BENZATHINE LA 2,400,000 UNIT/4 ML DISP.SYRIN. IM ONE (15:00)
[2019-02-13 15:08] VITALS: BP 126/68
--- NOTE | 2019-02-13 15:16 | PHYS DOC ---
Past Medical History Past Medical History: No Pertinent History Additional Past Medical Histor: BACK PAIN, KNEE PAIN, Past Surgical History: No Surgical History Alcohol Use: Heavy Drug Use: Cocaine Adult General Chief Complaint Chief Complaint: SEXUALLY TRANSMITTED DISEASE [place] [facility] [facility] HPI Patient is a 38 year old male who presents with went to see [facility] and had a preliminary screening test positive for syphilis. Patient had a second blood tests drawn and he will not no final result until February 20. Patient denies rashes, sores, headache, fevers, penile drainage, dysuria. He shouldn't is willing to be treated today for syphilis and other STDs. Review of Systems Review of Systems Constitutional: Denies fever or chills [] Eyes: Denies change in visual acuity, redness, or eye pain [] HENT: Denies nasal congestion or sore throat [] Respiratory: Denies cough or shortness of breath [] Cardiovascular: No additional information not addressed in HPI [] GI: Denies abdominal pain, nausea, vomiting, bloody stools or diarrhea [] : Preliminary positive syphilis test. Denies dysuria or hematuria [] Musculoskeletal: Denies back pain or joint pain [] Integument: Denies rash or skin lesions [] Neurologic: Denies headache, focal weakness or sensory changes [] All other systems were reviewed and found to be within normal limits, except as documented in this note. Current Medications Current Medications Current Medications Medications (Trade) Dose Ordered Sig/Jose Start Time Stop Time Status Last Admin Dose Admin Azithromycin (Zithromax) 1,000 mg 1X ONCE 02/13/19 15:00 02/13/19 15:01 DC Ceftriaxone Sodium (Rocephin Im) 250 mg 1X ONCE 02/13/19 15:00 02/13/19 15:01 DC Ondansetron HCl (Zofran Odt) 4 mg 1X ONCE 02/13/19 15:00 02/13/19 15:02 DC Penicillin G Benzathine (Bicillin L-A) 2,400,000 unit 1X ONCE 02/13/19 15:00 02/13/19 15:02 DC 02/13/19 15:50 2,400,000 UNIT Allergies Allergies Allergies Coded Allergies Type Severity Reaction Last Updated Verified No Known Drug Allergies 01/10/14 No Physical Exam Physical Exam Constitutional: Well developed, well nourished, no acute distress, non-toxic appearance. [] HENT: Normocephalic, atraumatic, bilateral external ears normal, oropharynx moist, no oral exudates, nose normal. [] Eyes: PERRLA, EOMI, conjunctiva normal, no discharge. [] Neck: Normal range of motion, no tenderness, supple, no stridor. [] Cardiovascular:Heart rate regular rhythm, no murmur [] Lungs & Thorax: Bilateral breath sounds clear to auscultation [] Abdomen: Bowel sounds normal, soft, no tenderness, no masses, no pulsatile masses. [] Skin: Warm, dry, no erythema, no rash. [] Back: No tenderness, no CVA tenderness. [] Extremities: No tenderness, no cyanosis, no clubbing, ROM intact, no edema. [] Neurologic: Alert and oriented X 3, normal motor function, normal sensory function, no focal deficits noted. [] Psychologic: Affect normal, judgement normal, mood normal. Normal physical exam [] Current Patient Data Vital Signs Vital Signs Date Time Temp Pulse Resp B/P (MAP) Pulse Ox O2 Delivery O2 Flow Rate FiO2 02/13/19 15:08 97.8 68 16 126/68 (87) Room Air 97.8 EKG EKG [] Radiology/Procedures Radiology/Procedures [] Course & Med Decision Making Course & Med Decision Making Patient is a 38 year old male who presents with went to see [facility] and had a preliminary screening test positive for syphilis. Patient had a second blood tests drawn and he will not no final result until February 20. Patient denies rashes, sores, headache, fevers, penile drainage, dysuria. He shouldn't is willing to be treated today for syphilis and other STDs. Oriented. Skin pink warm and dry. Speaks in full clear sentences. Vital signs are within normal limits. Patient has no rashes, sores, headache, fevers, penile discharge and denies dysuria symptoms. Patient has agreed to give us a urine specimen for Chlamydia and gonorrhea and to be treated for Chlamydia and gonorrhea also. Patient is given penicillin G IM, Rocephin IM, azithromycin. Patient is told that he will be called in 48 hours if the Chlamydia and gonorrhea tests are positive. Patient left before receiving discharge instruction. Dragon Disclaimer Dragon Disclaimer This electronic medical record was generated, in whole or in part, using a voice recognition dictation system. Departure Departure Impression: Primary Impression: Sexually transmitted disease Disposition: 01 HOME, SELF-CARE Condition: STABLE Referrals: NO PCP (PCP) Patient Instructions: Sexually Transmitted Disease Additional Instructions: Follow-up with primary care provider. TEE LANDRY APRN Feb 13, 2019 15:16
== END 2019-02-13 16:42 | disposition home or self-care (01) ==
LOC: ER 13:13
DX: A53.9 Syphilis, unspecified (principal); F10.20 Alcohol dependence, uncomplicated; Y90.9 Presence of alcohol in blood, level not specified
CPT/HCPCS: 87491; 87591; 96372; 99283; J0561; J0696; Q0144; Q0162

== ENCOUNTER 2019-03-14 23:08 | Observation (INO) | payer SELFPAY ==
[~2019-03-14] VITALS: Ht 180.3 cm; Wt 81.2 kg
[2019-03-14] MEDS ORDERED: ASPIRIN CHEWABLE 81 MG TABLET. PO ONE (23:15)
[2019-03-14 23:41] LABS: CALCIUM 8.3 mg/dL (8.5-10.1); CREATININE 1.2 mg/dL (0.7-1.3); GFR 81.1; POTASSIUM 3.3 mmol/L (3.5-5.1)
[2019-03-14 23:42] LABS: PROTHROMBIN TIME PATIENT 12.8 SEC (11.7-14.0)
[2019-03-14 23:45] LABS: ACETAMIN < 2 mcg/ml (10-30); ETHANOL 232 mg/dL (0-10); SALIC < 2.8 mg/dL (2.8-20.0)
[2019-03-14] MEDS ORDERED: IV NORMAL SALINE 1000ML BAG 1,000 ML IV ONE (23:45)
[2019-03-14 23:47] LABS: ALBUMIN/GLOBULIN RATIO 1.1 (1.0-1.7); TOTAL BILIRUBIN 0.1 mg/dL (0.2-1.0); TOTAL PROTEIN 7.5 g/dL (6.4-8.2)
[2019-03-15] MEDS ORDERED: NITROGLYCERIN SUBLINGUAL 0.4 MG BOTTLE OF 25. SL PRN
[2019-03-15] MEDS ORDERED: POTASSIUM CHLORIDE 20 MEQ/15 ML ORAL LIQUID. PO ONE
[2019-03-15 00:04] LABS: BARBITURATES NEG (NEG); BENZODIAZEPINES NEG (NEG); CANNABINOIDS NEG (NEG); COCAINE POS (NEG); METHADONE NEG (NEG); OPIATES NEG (NEG); PHENCYCLIDINE NEG (NEG)
[2019-03-15 00:06] LABS: AMPHETAMINE/METHAMPHETAMINE NEG (NEG)
[2019-03-15 00:21] LABS: BASO % 1 % (0-3); EOS % 0 % (0-3); HEMATOCRIT 41.9 % (39.0-53.0); HEMOGLOBIN 13.9 g/dL (13.0-17.5); LYMPH # 0.4 x10^3/uL (1.0-4.8); LYMPH % 7 % (24-48); MEAN CORPUSCULAR HEMOGLOBIN 34 pg (25-35); MEAN CORPUSCULAR HGB CONC 33 g/dL (31-37); MEAN CORPUSCULAR VOLUME 102 fL (79-100); MONO # 0.2 x10^3/uL (0.0-1.1); MONO % 3 % (0-9); NEUT # 5.6 x10^3uL (1.8-7.7); NEUT % 90 % (31-73); PLATELET COUNT 295 x10^3/uL (140-400); RED BLOOD COUNT 4.13 x10^6/uL (4.30-5.70); RED CELL DISTRIBUTION WIDTH 14.2 % (11.5-14.5); WHITE BLOOD COUNT 6.3 x10^3/uL (4.0-11.0)
[2019-03-15 00:48] VITALS: BP 103/44
--- NOTE | 2019-03-15 01:34 | PHYS DOC ---
Past Medical History Past Medical History: No Pertinent History Additional Past Medical Histor: BACK PAIN, KNEE PAIN, Past Surgical History: No Surgical History Alcohol Use: Heavy Drug Use: Cocaine Adult General Chief Complaint Chief Complaint: DRUG ABUSE HPI HPI Patient is a 38 year old male brought in by ambulance in custody, apparently had been doing cocaine medics said 2 g was walking around on the street, agitated behavior heart rate initially was 180. Initially did not want to come to the hospital then police were called he had a warrant out for his arrest medics reported to me verbally as soon as the handcuffs got placed he began to say that he was both suicidal and having chest pain simultaneously. Patient says he has central chest pressure also feels his heart is racing any feel short of breath he also says he has thoughts of suicide he's had this before he wants to shoot himself with a gun and then later he told me he wanted to get run over by a truck Review of Systems Review of Systems Eyes: Denies change in visual acuity, redness, or eye pain [] HENT: Denies nasal congestion or sore throat [] Musculoskeletal: Denies back pain or joint pain [] Integument: Denies rash or skin lesions [] All other systems were reviewed and found to be within normal limits, except as documented in this note. Current Medications Current Medications Current Medications Medications (Trade) Dose Ordered Sig/Jose Start Time Stop Time Status Last Admin Dose Admin Aspirin (Children'S Aspirin) 324 mg 1X ONCE 03/14/19 23:15 03/14/19 23:16 DC 03/14/19 23:28 324 MG Lorazepam (Ativan) 2 mg 1X ONCE 03/14/19 23:15 03/14/19 23:16 DC 03/14/19 23:28 2 MG Nitroglycerin (Nitrostat) 0.4 mg PRN Q5MIN PRN 03/15/19 00:00 03/15/19 23:59 03/15/19 00:40 0.4 MG Potassium Chloride (KCl Oral Soln) 40 meq 1X ONCE 03/15/19 00:00 03/15/19 00:20 DC 03/15/19 00:05 40 MEQ Sodium Chloride 1,000 ml @ 1,000 mls/hr 1X ONCE 03/14/19 23:45 03/15/19 00:44 DC 03/14/19 23:20 1,000 MLS/HR Allergies Allergies Allergies Coded Allergies Type Severity Reaction Last Updated Verified No Known Drug Allergies 01/10/14 No Physical Exam Physical Exam Constitutional: Well developed and agitated but redirectable with police in the room patient did come in in restraints HENT: Normocephalic, atraumatic, bilateral external ears normal, oropharynx moist, no oral exudates, nose normal. [] Eyes: PERRLA, EOMI, conjunctiva normal, no discharge. [] Neck: Normal range of motion, no tenderness, supple, no stridor. [] Cardiovascular: Tachycardic difficult to assess for murmurs Lungs & Thorax: Bilateral breath sounds clear to auscultation [] Abdomen: Bowel sounds normal, soft, no tenderness, no masses, no pulsatile masses. [] Skin: Warm, dry, no erythema, no rash. [] Back: No tenderness, no CVA tenderness. [] Extremities: No tenderness, no cyanosis, no clubbing, ROM intact, no edema. [] Neurologic: Alert and oriented X 3, normal motor function, normal sensory function, no focal deficits noted. [] Psychologic: Patient is agitated does complain of suicidality] Current Patient Data Vital Signs Vital Signs Date Time Temp Pulse Resp B/P (MAP) Pulse Ox O2 Delivery O2 Flow Rate FiO2 03/14/19 23:45 100.8 128 18 130/70 (90) 95 Room Air 100.8 Lab Values Laboratory Tests Test 03/14/19 23:20 03/14/19 23:52 Prothrombin Time 12.8 SEC (11.7-14.0) Prothrombin Time INR 1.0 (0.8-1.1) Sodium Level 139 mmol/L (136-145) Potassium Level 3.3 mmol/L (3.5-5.1) L Chloride Level 102 mmol/L (98-107) Carbon Dioxide Level 24 mmol/L (21-32) Anion Gap 13 (6-14) Blood Urea Nitrogen 9 mg/dL (8-26) Creatinine 1.2 mg/dL (0.7-1.3) Estimated GFR (Cockcroft-Gault) 81.1 BUN/Creatinine Ratio 8 (6-20) Glucose Level 126 mg/dL (70-99) H Calcium Level 8.3 mg/dL (8.5-10.1) L Total Bilirubin 0.1 mg/dL (0.2-1.0) L Aspartate Amino Transferase (AST) 37 U/L (15-37) Alanine Aminotransferase (ALT) 58 U/L (16-63) Alkaline Phosphatase 59 U/L (46-116) Creatine Kinase 714 U/L (39-308) H Troponin I Quantitative < 0.017 ng/mL (0.000-0.055) TS-Vng-B-Type Natriuretic Peptide 21 pg/mL (0-124) Total Protein 7.5 g/dL (6.4-8.2) Albumin 4.0 g/dL (3.4-5.0) Albumin/Globulin Ratio 1.1 (1.0-1.7) Salicylates Level < 2.8 mg/dL (2.8-20.0) L Salicylate Last Dose Date Unk Salicylate Last Dose Time Unk Acetaminophen Level < 2 mcg/ml (10-30) L Acetaminophen Last Dose Date Unk Acetaminophen Last Dose Time Unk Ethyl Alcohol Level 232 mg/dL (0-10) H Urine Opiates Screen Neg (NEG) Urine Methadone Screen Neg (NEG) Urine Barbiturates Neg (NEG) Urine Phencyclidine Screen Neg (NEG) Urine Amphetamine/Methamphetamine Neg (NEG) Urine Benzodiazepines Screen Neg (NEG) Urine Cocaine Screen Pos (NEG) Urine Cannabinoids Screen Neg (NEG) Urine Ethyl Alcohol Pos (NEG) Laboratory Tests 03/14/19 23:20 EKG EKG []EKG shows a probably sinus tachycardia rate of 141 no STEMI no obvious [address] depressions QTC 468 interpreted by me time of encounter Radiology/Procedures Radiology/Procedures [] Impressions: Chest x-ray showed no pneumothorax no pneumonia normal bones on my interpretation Course & Med Decision Making Course & Med Decision Making Pertinent Labs and Imaging studies reviewed. (See chart for details) Temp 100.8 likely related to sympathomimetic toxidrome given the initial tachycardia and the heavy cocaine use. Labs overall are reassuring mild CK elevation patient was hydrated in the emergency room repeat troponins will be ordered in the hospital. I feel the patient needs at least a second troponin to be medically cleared and as such we will admit for observation for stroke troponins and then a pat consult in the morning. it is very possible there is a component of malingering however we need to think that a diagnosis of exclusion and rule out troponins and then have PAT team evaluate the patient Admit to [facility] per usual local protocol pt got ativan and aspirin in the er with improvement. the fever i believe is from toxidrome cocaine rather than sepsis [] Dragon Disclaimer Dragon Disclaimer This electronic medical record was generated, in whole or in part, using a voice recognition dictation system. Departure Departure Impression: Primary Impression: Chest pain Additional Impression: Suicidal ideation Disposition: ADMITTED INPATIENT Admitting Physician: Pritesh Dunn Condition: STABLE Referrals: NO PCP (PCP) Problem Qualifiers MURPHY ADAN MD Mar 15, 2019 01:34
[2019-03-15 02:58] VITALS: BP 125/57
--- NOTE | 2019-03-15 03:25 | NUR ---
Patient arrived to floor at 0045 accompanied by PD. VS taken, assessment complete. patient resting comfortably on room air. No complaints of pain at this time. removed pt phone from room. Belongings placed at nurses station. Pt states "i need to see a doctor, im having suicidal thoughts. When i leave here i plan to jump off a bridge, jump in front of a [address], or shoot my self in the head" When asked if he had previous attempts patient states "i have had multiple attempts to kill my self, i have tried to hang my self in the past"- Pat team consulted. Patient states that he is homless and doesnt have a support system- SW consulted. Pt is a poor historian. Drinks approx 4 nights a week 3-4 alcoholic drinks per night- states he is "trying to cut back". kerlex placed on right wrist and ankle to protect skin from handcuffs. PD present. SIGHT MOUNTER 1:1 present. bed in low locked position, call light with in reach. Will continue to monitor.
[2019-03-15 03:39] LABS: % BANDS 2 % (0-9); % LYMPHS 5 % (24-48); % MONOS 1 % (0-10); % SEGS 92 % (35-66); PLT ESTIMATE ADEQUATE (ADEQUATE)
[2019-03-15 07:00] VITALS: BP 144/83
--- NOTE | 2019-03-15 07:34 | EKG ---
[facility] [address] [place] [address] Test Date: 2019-03-14 Test Time: 23:11:23 Pat Name: PERRY العلي Department: Room: 211 1 Gender: M [employer] Builder: : 1980 Requested By: MURPHY ADAN Order Number: [id number] Reading MD: Nate Wright MD Measurements Intervals [place] Rate: 141 P: -112 [place]: 98 QRS: 75 QRSD: 102 T: 31 QT: 304 QTc: 468 Interpretive Statements PROBABLE SINUS TACHYCARDIA NON-SPECIFIC ST/T CHANGES Electronically Signed On 03-19-2019 14:51:10 CDT by Nate Wright MD
--- NOTE | 2019-03-15 08:27 | RAD ---
AP portable chest radiograph 03/14/2019 Clinical History: Shortness of breath. An AP erect portable digital radiograph of the chest was obtained. Comparison study is dated 06/01/2018. The cardiac silhouette is mildly enlarged. The thoracic aorta is tortuous. No acute pulmonary infiltrate is seen. No pleural effusion or pneumothorax is noted. Degenerative changes are seen involving the thoracic spine. Impression: No acute abnormality is seen. Electronically signed by: Cong Giron MD (03/15/2019 8:24 AM) [id number]
[2019-03-15] MEDS ORDERED: ONDANSETRON PF 4 MG/2 ML VIAL. IV PRN (09:15)
[2019-03-15] MEDS ORDERED: diazePAM 2 MG TABLET PO PRN (09:15)
[2019-03-15] MEDS ORDERED: IBUPROFEN 400 MG TABLET. PO PRN (09:15)
[2019-03-15] MEDS ORDERED: ACETAMINOPHEN 500 MG TABLET PO PRN (09:15)
--- NOTE | 2019-03-15 09:49 | NUR ---
Discussed patient status with Dr. Meehan this morning to ask about cardiology consult because patient was NPO. Dr. Meehan changed diet order to regular and does not want cardiology at this time. Patient reports no longer having chest pain. Breakfast tray ordered. Awaiting PAT team evaluation. 1:1RN and policer officer present in room. Patient has remained calm and cooperative this morning. Patient expressed interest in inpatient psych options.
--- NOTE | 2019-03-15 10:54 | PDOC1 ---
History and Physical Date of Admission Date of Admission DATE: 03/15/19 TIME: 10:49 Identification/Chief Complaint Chief Complaint Agitation, chest pain after cocaine use Source Source: Caregiver, Chart review, Patient History of Present Illness History of Present Illness 38-year-old male who came in a combative behavior, some aggression, brought in by [place] officer as was caught with 2 g of cocaine. He was complaining of chest pain hence admitted henceforth. He also had some thoughts of initial suicide intent namely shooting himself with a gun and getting ran over by a truck. But now he denies that to me. No SI in past, He admits he made up those stories to get out of police and be brought to the hosp. He did not realize that he will still be handcuffed and a [place] police officer watching him while in the hospital. Troponin 3 is negative. Tachycardia is much better. No chest pain. He is not having chest pain. Cocaine CAN cause vasospasm if he was having chest pain at all. He tested positive for cocaine on UDS Okay to be released back to residential No need for cardiology to see. Most likely chest pain from vasospasm, but could also be malingering to get away from police custody hence the SI and chest pain stories,. HE admitted that to me though HE does Not take any meds from home Past Medical History Cardiovascular: No pertinent hx Pulmonary: No pertinent hx GI: No pertinent hx Hepatobiliary: No pertinent hx Psych: No pertinent hx Rheumatologic: No pertinent hx Infectious disease: No pertinent hx ENT: No pertinent hx Past Surgical History Past Surgical History: No pertinent history Family History Family History: No Significant Social History Smoke: No ALCOHOL: none Drugs: Cocaine Current Medications Current Medications Current Medications Lorazepam (Ativan) 2 mg 1X ONCE IV Last administered on 03/14/19at 23:28; Start 03/14/19 at 23:15; Stop 03/14/19 at 23:16; Status DC Aspirin (Children'S Aspirin) 324 mg 1X ONCE PO Last administered on 03/14/19at 23:28; Start 03/14/19 at 23:15; Stop 03/14/19 at 23:16; Status DC Sodium Chloride 1,000 ml @ 1,000 mls/hr 1X ONCE IV Last administered on 03/14/19at 23:20; Start 03/14/19 at 23:45; Stop 03/15/19 at 00:44; Status DC Nitroglycerin (Nitrostat) 0.4 mg PRN Q5MIN PRN SL CHEST PAIN Last administered on 03/15/19at 00:40; Start 03/15/19 at 00:00; Stop 03/15/19 at 23:59 Potassium Chloride (KCl Oral Soln) 40 meq 1X ONCE PO Last administered on 03/15/19at 00:05; Start 03/15/19 at 00:00; Stop 03/15/19 at 00:20; Status DC Diazepam (Valium) 2 mg PRN TID PRN PO ANXIETY; Start 03/15/19 at 09:15 Acetaminophen (Tylenol) 500 mg PRN Q6HRS PRN PO MILD PAIN / TEMP; Start 03/15/19 at 09:15 Ibuprofen (Motrin) 400 mg PRN Q6HRS PRN PO INFLAMMATION; Start 03/15/19 at 09:15 Ondansetron HCl (Zofran) 4 mg PRN Q6HRS PRN IV NAUSEA/VOMITING; Start 03/15/19 at 09:15 Active Scripts Active Erythromycin (Erythromycin Base) 1 Gm Oint...g. 1 Gm OP TID 5 Days Apply half inch ribbon to lower inner eyelid avoid touching eye with container Ketoconazole 25 Gm Crystals 25 Gm MC BID Use until lessions have cleared completely Fluconazole 200 Mg Tablet 400 Tab PO ONCE Naprosyn (Naproxen) 500 Mg Tablet 500 Mg PO BID PRN Bactrim Ds Tablet (Sulfamethoxazole/Trimethoprim) 1 Each Tablet 1 Tab PO BID Cephalexin 500 Mg Capsule 1 Cap PO QID Allergies Allergies: Coded Allergies: Penicillins (Verified Allergy, Unknown, 03/15/19) ROS Review of System A 14 point ROS was completed with the following noted as positive: Other systems reviewed and negative. \CONSTITUTIONAL: No fever or chills EYES: No recent changes SKIN: No rash or itching CARDIOVASCULAR: No chest pain, syncope, palpitations, or edema RESPIRATORY: No SOB or cough GASTROINTESTINAL: No nausea, vomiting or abdominal pain NEUROLOGICAL: No headaches or weakness ENDOCRINE: No cold or heat intolerance GENITOURINARY: No urgency or frequency of urination MUSCULOSKELETAL: No back pain or joint pain LYMPHATICS: No enlarged lymph nodes PSYCHIATRIC: No anxiety or depression Physical Exam General: Alert, Oriented X3, Cooperative, No acute distress HEENT: Atraumatic, PERRLA Lungs: Clear to auscultation, Normal air movement Heart: S1S2, RRR, no thrills, no rubs, no gallops, no murmurs Cardiovascular: S1, S2 Breasts: Normal, Rt breast nml w/o mass, Lt breast nml w/o mass, Nipples normal Abdomen: Normal bowel sounds, Soft, No tenderness, No hepatosplenomegaly, No masses Male Genitals Exam: normal genitalia, normal prostate Rectal Exam: not examined PELVIC: Nml ext genitalia Extremities: No clubbing, No cyanosis, No edema, Normal pulses, No tenderness/swelling Skin: No rashes, No breakdown, No significant lesion Neuro: Normal gait, Normal speech, Strength at 5/5 X4 ext, Normal tone, Sensation intact, Cranial nerves 3-12 NL, Reflexes 2+ Psych/Mental Status: Mental status NL, Mood NL Vitals Vitals Vital Signs Date Time Temp Pulse Resp B/P (MAP) Pulse Ox O2 Delivery O2 Flow Rate FiO2 03/15/19 07:45 Room Air 03/15/19 07:00 98.7 76 16 144/83 (103) 95 98.7 Labs Labs Laboratory Tests Test 03/14/19 23:20 03/14/19 23:52 03/15/19 00:15 03/15/19 02:35 Prothrombin Time 12.8 SEC (11.7-14.0) Prothromb Time International Ratio 1.0 (0.8-1.1) Sodium Level 139 mmol/L (136-145) Potassium Level 3.3 mmol/L (3.5-5.1) Chloride Level 102 mmol/L (98-107) Carbon Dioxide Level 24 mmol/L (21-32) Anion Gap 13 (6-14) Blood Urea Nitrogen 9 mg/dL (8-26) Creatinine 1.2 mg/dL (0.7-1.3) Estimated GFR (Cockcroft-Gault) 81.1 BUN/Creatinine Ratio 8 (6-20) Glucose Level 126 mg/dL (70-99) Calcium Level 8.3 mg/dL (8.5-10.1) Total Bilirubin 0.1 mg/dL (0.2-1.0) Aspartate Amino Transf (AST/SGOT) 37 U/L (15-37) Alanine Aminotransferase (ALT/SGPT) 58 U/L (16-63) Alkaline Phosphatase 59 U/L (46-116) Creatine Kinase 714 U/L (39-308) Troponin I Quantitative < 0.017 ng/mL (0.000-0.055) 0.019 ng/mL (0.000-0.055) SG-Hlu-X-Type Natriuretic Peptide 21 pg/mL (0-124) Total Protein 7.5 g/dL (6.4-8.2) Albumin 4.0 g/dL (3.4-5.0) Albumin/Globulin Ratio 1.1 (1.0-1.7) Salicylates Level < 2.8 mg/dL (2.8-20.0) Salicylate Last Dose Date Unk Salicylate Last Dose Time Unk Acetaminophen Level < 2 mcg/ml (10-30) Acetaminophen Last Dose Date Unk Acetaminophen Last Dose Time Unk Ethyl Alcohol Level 232 mg/dL (0-10) Urine Opiates Screen Neg (NEG) Urine Methadone Screen Neg (NEG) Urine Barbiturates Neg (NEG) Urine Phencyclidine Screen Neg (NEG) Urine Amphetamine/Methamphetamine Neg (NEG) Urine Benzodiazepines Screen Neg (NEG) Urine Cocaine Screen Pos (NEG) Urine Cannabinoids Screen Neg (NEG) Urine Ethyl Alcohol Pos (NEG) White Blood Count 6.3 x10^3/uL (4.0-11.0) Red Blood Count 4.13 x10^6/uL (4.30-5.70) Hemoglobin 13.9 g/dL (13.0-17.5) Hematocrit 41.9 % (39.0-53.0) Mean Corpuscular Volume 102 fL (79-100) Mean Corpuscular Hemoglobin 34 pg (25-35) Mean Corpuscular Hemoglobin Concent 33 g/dL (31-37) Red Cell Distribution Width 14.2 % (11.5-14.5) Platelet Count 295 x10^3/uL (140-400) Neutrophils (%) (Auto) 90 % (31-73) Lymphocytes (%) (Auto) 7 % (24-48) Monocytes (%) (Auto) 3 % (0-9) Eosinophils (%) (Auto) 0 % (0-3) Basophils (%) (Auto) 1 % (0-3) Neutrophils # (Auto) 5.6 x10^3uL (1.8-7.7) Lymphocytes # (Auto) 0.4 x10^3/uL (1.0-4.8) Monocytes # (Auto) 0.2 x10^3/uL (0.0-1.1) Eosinophils # (Auto) 0.0 x10^3/uL (0.0-0.7) Basophils # (Auto) 0.0 x10^3/uL (0.0-0.2) Segmented Neutrophils % 92 % (35-66) Band Neutrophils % 2 % (0-9) Lymphocytes % 5 % (24-48) Monocytes % 1 % (0-10) Platelet Estimate Adequate (ADEQUATE) Giant Platelets Occ Test 03/15/19 05:46 Troponin I Quantitative 0.019 ng/mL (0.000-0.055) Laboratory Tests Test 03/14/19 23:20 03/14/19 23:52 03/15/19 00:15 03/15/19 02:35 Prothrombin Time 12.8 SEC (11.7-14.0) Prothromb Time International Ratio 1.0 (0.8-1.1) Sodium Level 139 mmol/L (136-145) Potassium Level 3.3 mmol/L (3.5-5.1) Chloride Level 102 mmol/L (98-107) Carbon Dioxide Level 24 mmol/L (21-32) Anion Gap 13 (6-14) Blood Urea Nitrogen 9 mg/dL (8-26) Creatinine 1.2 mg/dL (0.7-1.3) Estimated GFR (Cockcroft-Gault) 81.1 BUN/Creatinine Ratio 8 (6-20) Glucose Level 126 mg/dL (70-99) Calcium Level 8.3 mg/dL (8.5-10.1) Total Bilirubin 0.1 mg/dL (0.2-1.0) Aspartate Amino Transf (AST/SGOT) 37 U/L (15-37) Alanine Aminotransferase (ALT/SGPT) 58 U/L (16-63) Alkaline Phosphatase 59 U/L (46-116) Creatine Kinase 714 U/L (39-308) Troponin I Quantitative < 0.017 ng/mL (0.000-0.055) 0.019 ng/mL (0.000-0.055) DH-Hka-P-Type Natriuretic Peptide 21 pg/mL (0-124) Total Protein 7.5 g/dL (6.4-8.2) Albumin 4.0 g/dL (3.4-5.0) Albumin/Globulin Ratio 1.1 (1.0-1.7) Salicylates Level < 2.8 mg/dL (2.8-20.0) Salicylate Last Dose Date Unk Salicylate Last Dose Time Unk Acetaminophen Level < 2 mcg/ml (10-30) Acetaminophen Last Dose Date Unk Acetaminophen Last Dose Time Unk Ethyl Alcohol Level 232 mg/dL (0-10) Urine Opiates Screen Neg (NEG) Urine Methadone Screen Neg (NEG) Urine Barbiturates Neg (NEG) Urine Phencyclidine Screen Neg (NEG) Urine Amphetamine/Methamphetamine Neg (NEG) Urine Benzodiazepines Screen Neg (NEG) Urine Cocaine Screen Pos (NEG) Urine Cannabinoids Screen Neg (NEG) Urine Ethyl Alcohol Pos (NEG) White Blood Count 6.3 x10^3/uL (4.0-11.0) Red Blood Count 4.13 x10^6/uL (4.30-5.70) Hemoglobin 13.9 g/dL (13.0-17.5) Hematocrit 41.9 % (39.0-53.0) Mean Corpuscular Volume 102 fL (79-100) Mean Corpuscular Hemoglobin 34 pg (25-35) Mean Corpuscular Hemoglobin Concent 33 g/dL (31-37) Red Cell Distribution Width 14.2 % (11.5-14.5) Platelet Count 295 x10^3/uL (140-400) Neutrophils (%) (Auto) 90 % (31-73) Lymphocytes (%) (Auto) 7 % (24-48) Monocytes (%) (Auto) 3 % (0-9) Eosinophils (%) (Auto) 0 % (0-3) Basophils (%) (Auto) 1 % (0-3) Neutrophils # (Auto) 5.6 x10^3uL (1.8-7.7) Lymphocytes # (Auto) 0.4 x10^3/uL (1.0-4.8) Monocytes # (Auto) 0.2 x10^3/uL (0.0-1.1) Eosinophils # (Auto) 0.0 x10^3/uL (0.0-0.7) Basophils # (Auto) 0.0 x10^3/uL (0.0-0.2) Segmented Neutrophils % 92 % (35-66) Band Neutrophils % 2 % (0-9) Lymphocytes % 5 % (24-48) Monocytes % 1 % (0-10) Platelet Estimate Adequate (ADEQUATE) Giant Platelets Occ Test 03/15/19 05:46 Troponin I Quantitative 0.019 ng/mL (0.000-0.055) VTE Prophylaxis Ordered VTE Prophylaxis Devices: Yes VTE Pharmacological Prophylaxi: Yes Assessment/Plan Assessment/Plan Aggressive behavio - r resolved Positive UDS-cocaine To be incarcerated or arrested No chest pain Not suicidal PLAnL dc today to police custody ISAIAH MILLER MD Mar 15, 2019 10:54
--- NOTE | 2019-03-15 10:56 | PDOC3 ---
Discharge Summary Visit Information Date of Admission: Mar 14, 2019 Date of Discharge: Mar 15, 2019 Final Diagnosis Aggressive behavio - r resolved Positive UDS-cocaine To be incarcerated or arrested No chest pain Not suicidal PLAnL dc today to police custody Brief Hospital Course Allergies Allergies Coded Allergies Type Severity Reaction Last Updated Verified Penicillins Allergy Unknown 03/15/19 Yes Vital Signs Vital Signs Date Time Temp Pulse Resp B/P (MAP) Pulse Ox O2 Delivery O2 Flow Rate FiO2 03/15/19 07:45 Room Air 03/15/19 07:00 98.7 76 16 144/83 (103) 95 98.7 Lab Results Laboratory Tests Test 03/14/19 23:20 03/14/19 23:52 03/15/19 00:15 03/15/19 02:35 Prothrombin Time 12.8 SEC (11.7-14.0) Prothromb Time International Ratio 1.0 (0.8-1.1) Sodium Level 139 mmol/L (136-145) Potassium Level 3.3 mmol/L (3.5-5.1) Chloride Level 102 mmol/L (98-107) Carbon Dioxide Level 24 mmol/L (21-32) Anion Gap 13 (6-14) Blood Urea Nitrogen 9 mg/dL (8-26) Creatinine 1.2 mg/dL (0.7-1.3) Estimated GFR (Cockcroft-Gault) 81.1 BUN/Creatinine Ratio 8 (6-20) Glucose Level 126 mg/dL (70-99) Calcium Level 8.3 mg/dL (8.5-10.1) Total Bilirubin 0.1 mg/dL (0.2-1.0) Aspartate Amino Transf (AST/SGOT) 37 U/L (15-37) Alanine Aminotransferase (ALT/SGPT) 58 U/L (16-63) Alkaline Phosphatase 59 U/L (46-116) Creatine Kinase 714 U/L (39-308) Troponin I Quantitative < 0.017 ng/mL (0.000-0.055) 0.019 ng/mL (0.000-0.055) DO-Fri-L-Type Natriuretic Peptide 21 pg/mL (0-124) Total Protein 7.5 g/dL (6.4-8.2) Albumin 4.0 g/dL (3.4-5.0) Albumin/Globulin Ratio 1.1 (1.0-1.7) Salicylates Level < 2.8 mg/dL (2.8-20.0) Salicylate Last Dose Date Unk Salicylate Last Dose Time Unk Acetaminophen Level < 2 mcg/ml (10-30) Acetaminophen Last Dose Date Unk Acetaminophen Last Dose Time Unk Ethyl Alcohol Level 232 mg/dL (0-10) Urine Opiates Screen Neg (NEG) Urine Methadone Screen Neg (NEG) Urine Barbiturates Neg (NEG) Urine Phencyclidine Screen Neg (NEG) Urine Amphetamine/Methamphetamine Neg (NEG) Urine Benzodiazepines Screen Neg (NEG) Urine Cocaine Screen Pos (NEG) Urine Cannabinoids Screen Neg (NEG) Urine Ethyl Alcohol Pos (NEG) White Blood Count 6.3 x10^3/uL (4.0-11.0) Red Blood Count 4.13 x10^6/uL (4.30-5.70) Hemoglobin 13.9 g/dL (13.0-17.5) Hematocrit 41.9 % (39.0-53.0) Mean Corpuscular Volume 102 fL (79-100) Mean Corpuscular Hemoglobin 34 pg (25-35) Mean Corpuscular Hemoglobin Concent 33 g/dL (31-37) Red Cell Distribution Width 14.2 % (11.5-14.5) Platelet Count 295 x10^3/uL (140-400) Neutrophils (%) (Auto) 90 % (31-73) Lymphocytes (%) (Auto) 7 % (24-48) Monocytes (%) (Auto) 3 % (0-9) Eosinophils (%) (Auto) 0 % (0-3) Basophils (%) (Auto) 1 % (0-3) Neutrophils # (Auto) 5.6 x10^3uL (1.8-7.7) Lymphocytes # (Auto) 0.4 x10^3/uL (1.0-4.8) Monocytes # (Auto) 0.2 x10^3/uL (0.0-1.1) Eosinophils # (Auto) 0.0 x10^3/uL (0.0-0.7) Basophils # (Auto) 0.0 x10^3/uL (0.0-0.2) Segmented Neutrophils % 92 % (35-66) Band Neutrophils % 2 % (0-9) Lymphocytes % 5 % (24-48) Monocytes % 1 % (0-10) Platelet Estimate Adequate (ADEQUATE) Giant Platelets Occ Test 03/15/19 05:46 Troponin I Quantitative 0.019 ng/mL (0.000-0.055) Laboratory Tests Test 03/14/19 23:20 03/14/19 23:52 03/15/19 00:15 03/15/19 02:35 Prothrombin Time 12.8 SEC (11.7-14.0) Prothromb Time International Ratio 1.0 (0.8-1.1) Sodium Level 139 mmol/L (136-145) Potassium Level 3.3 mmol/L (3.5-5.1) Chloride Level 102 mmol/L (98-107) Carbon Dioxide Level 24 mmol/L (21-32) Anion Gap 13 (6-14) Blood Urea Nitrogen 9 mg/dL (8-26) Creatinine 1.2 mg/dL (0.7-1.3) Estimated GFR (Cockcroft-Gault) 81.1 BUN/Creatinine Ratio 8 (6-20) Glucose Level 126 mg/dL (70-99) Calcium Level 8.3 mg/dL (8.5-10.1) Total Bilirubin 0.1 mg/dL (0.2-1.0) Aspartate Amino Transf (AST/SGOT) 37 U/L (15-37) Alanine Aminotransferase (ALT/SGPT) 58 U/L (16-63) Alkaline Phosphatase 59 U/L (46-116) Creatine Kinase 714 U/L (39-308) Troponin I Quantitative < 0.017 ng/mL (0.000-0.055) 0.019 ng/mL (0.000-0.055) ND-Ytw-B-Type Natriuretic Peptide 21 pg/mL (0-124) Total Protein 7.5 g/dL (6.4-8.2) Albumin 4.0 g/dL (3.4-5.0) Albumin/Globulin Ratio 1.1 (1.0-1.7) Salicylates Level < 2.8 mg/dL (2.8-20.0) Salicylate Last Dose Date Unk Salicylate Last Dose Time Unk Acetaminophen Level < 2 mcg/ml (10-30) Acetaminophen Last Dose Date Unk Acetaminophen Last Dose Time Unk Ethyl Alcohol Level 232 mg/dL (0-10) Urine Opiates Screen Neg (NEG) Urine Methadone Screen Neg (NEG) Urine Barbiturates Neg (NEG) Urine Phencyclidine Screen Neg (NEG) Urine Amphetamine/Methamphetamine Neg (NEG) Urine Benzodiazepines Screen Neg (NEG) Urine Cocaine Screen Pos (NEG) Urine Cannabinoids Screen Neg (NEG) Urine Ethyl Alcohol Pos (NEG) White Blood Count 6.3 x10^3/uL (4.0-11.0) Red Blood Count 4.13 x10^6/uL (4.30-5.70) Hemoglobin 13.9 g/dL (13.0-17.5) Hematocrit 41.9 % (39.0-53.0) Mean Corpuscular Volume 102 fL (79-100) Mean Corpuscular Hemoglobin 34 pg (25-35) Mean Corpuscular Hemoglobin Concent 33 g/dL (31-37) Red Cell Distribution Width 14.2 % (11.5-14.5) Platelet Count 295 x10^3/uL (140-400) Neutrophils (%) (Auto) 90 % (31-73) Lymphocytes (%) (Auto) 7 % (24-48) Monocytes (%) (Auto) 3 % (0-9) Eosinophils (%) (Auto) 0 % (0-3) Basophils (%) (Auto) 1 % (0-3) Neutrophils # (Auto) 5.6 x10^3uL (1.8-7.7) Lymphocytes # (Auto) 0.4 x10^3/uL (1.0-4.8) Monocytes # (Auto) 0.2 x10^3/uL (0.0-1.1) Eosinophils # (Auto) 0.0 x10^3/uL (0.0-0.7) Basophils # (Auto) 0.0 x10^3/uL (0.0-0.2) Segmented Neutrophils % 92 % (35-66) Band Neutrophils % 2 % (0-9) Lymphocytes % 5 % (24-48) Monocytes % 1 % (0-10) Platelet Estimate Adequate (ADEQUATE) Giant Platelets Occ Test 03/15/19 05:46 Troponin I Quantitative 0.019 ng/mL (0.000-0.055) Brief Hospital Course Mr. Fernando is a 38 old brought in by police because was found have 2 g of cocaine with him. He wanted to escape police custody so he made up a story of SI and chest pain which is not true as he admitted to me. Now troponin 3 negative, EKG reassuring. Tachycardia much better No chest pain. Medically stable to be released to police custody consults: none Discharge Information Condition at Discharge: Improved Disposition/Orders: Other (police custody) Scheduled Cephalexin (Cephalexin) 500 Mg Capsule, 1 CAP PO QID, #40 Prescribed by: SILVINO LOUIS APRN on 11/30/16 1730 Last Action: HELD on 03/15/19909 by ISAIAH MILLER Erythromycin Base (Erythromycin) 1 Gm Oint...g., 1 GM OP TID for 5 Days, #1 Apply half inch ribbon to lower inner eyelid avoid touching eye with container Prescribed by: NATASHA HORTON APRN on 01/22/19 1633 Last Action: HELD on 03/15/19909 by ISAIAH MILLER Fluconazole (Fluconazole) 200 Mg Tablet, 400 TAB PO ONCE, #2 Prescribed by: Denise Oliva APRN on 11/05/17 105 Last Action: HELD on 03/15/19909 by ISAIAH MILLER Ketoconazole (Ketoconazole) 25 Gm Crystals, 25 GM MC BID, #1 Ref 1 Use until lessions have cleared completely Prescribed by: Denise Oliva APRN on 11/05/17 105 Last Action: HELD on 03/15/19909 by ISAIAH MILLER Sulfamethoxazole/Trimethoprim (Bactrim Ds Tablet) 1 Each Tablet, 1 TAB PO BID, #20 Prescribed by: RAJESH GALLO APRN on 10/24/172020 Last Action: HELD on 03/15/19909 by ISAIAH MILLER Scheduled PRN Naproxen (Naprosyn) 500 Mg Tablet, 500 MG PO BID PRN for PAIN, #20 Prescribed by: RAJESH GALLO APRN on 10/24/172020 Last Action: HELD on 03/15/19909 by ISAIAH JONES MD Mar 15, 2019 10:56
[2019-03-15 11:00] VITALS: BP 149/91
--- NOTE | 2019-03-15 11:14 | NUR ---
Patient to discharge to [facility]. Officer called transportation. Talked to Celina who confirmed that this RN did not have to give report and nothing needed to be faxed. Patient cooperating with discharge instructions and understands the situation. IV discontinued. Belonging bag returned to patient. Patient alert and stable upon discharge.
== END 2019-03-15 12:22 ==
LOC: EEVIPCON 23:08 → ER 23:08 → 2 NORTH 03-15 00:05
PROVIDERS: ADMIT Internal Medicine; ATTEND Internal Medicine
DX: R07.89 Other chest pain (principal); R45.851 Suicidal ideations; F14.90 Cocaine use, unspecified, uncomplicated; Z91.5 Personal history of self-harm; R45.1 Restlessness and agitation
CPT/HCPCS: 36415; 71045; 80053; 80307; 80329; 82550; 83880; 84484; 85007; 85025; 85610; 93005; 96361; 96374; 99284; G0378; G0480; J2060; J7030; G0379

== ENCOUNTER 2019-04-23 13:42 | Emergency (ER) | payer SELFPAY ==
[~2019-04-23] VITALS: Ht 180.3 cm; Wt 79.5 kg
[2019-04-23 13:55] VITALS: BP 146/62
[2019-04-23] MEDS ORDERED: DIPHTH,PERTUSS(ACELL),TET TOX 0.5 ML DISP.SYRIN. VAX IM ONE (14:30)
[2019-04-23] MEDS ORDERED: SULF1TAB24 PO (14:41)
--- NOTE | 2019-04-23 14:41 | PHYS DOC ---
Past Medical History Past Medical History: Other Additional Past Medical Histor: BACK/KNEE PAIN Past Surgical History: No Surgical History Alcohol Use: Sober Additional Information: LAST DRINK 3 MONTHS AGO Drug Use: Cocaine Social History Narrative: LAST USED 6 MONTHS AGO Adult General Chief Complaint Chief Complaint: ABSCESS HPI HPI Patient is a 38 year old male who presents with an abscess on the left upper chest for 3 days. Denies any fever. Review of Systems Review of Systems Constitutional: Denies fever or chills [] Musculoskeletal: Denies back pain or joint pain [] Integument: abscess on the left upper chest Neurologic: Denies headache, focal weakness or sensory changes [] All other systems were reviewed and found to be within normal limits, except as documented in this note. Current Medications Current Medications Current Medications Medications (Trade) Dose Ordered Sig/Jose Start Time Stop Time Status Last Admin Dose Admin Diphtheria/ Tetanus/Acell Pertussis (Boostrix) 0.5 ml ONCE ONCE 04/23/19 14:30 04/23/19 14:31 DC Allergies Allergies Allergies Coded Allergies Type Severity Reaction Last Updated Verified No Known Drug Allergies 04/23/19 No Physical Exam Physical Exam Constitutional: Well developed, well nourished, no acute distress, non-toxic appearance. [] Skin: Left upper chest with an indurated area approximately 1 x 1 cm. No fluctuance to this area. There is slight erythema from the area. No warmth. Tenderness to the area. Back: No tenderness, no CVA tenderness. [] Extremities: No tenderness, no cyanosis, no clubbing, ROM intact, no edema. [] Neurologic: Alert and oriented X 3, normal motor function, normal sensory function, no focal deficits noted. [] Psychologic: Affect normal, judgement normal, mood normal. [] Current Patient Data Vital Signs Vital Signs Date Time Temp Pulse Resp B/P (MAP) Pulse Ox O2 Delivery O2 Flow Rate FiO2 04/23/19 13:55 98.3 96 16 146/62 (90) 96 Room Air 98.3 EKG EKG [] Radiology/Procedures Radiology/Procedures Indication: abscess left upper chest Procedure: The patient was positioned appropriately. Local anesthesia was not applicable. An 16-gauge needle was used to aspirate this region to see if there is any drainage, bloody drainage was noted. The drainage cavity was irrigated and covered with sterile gauze. The patients tetanus status updated as needed. The patient tolerated the procedure well. Complications: none.[] Course & Med Decision Making Course & Med Decision Making Pertinent Labs and Imaging studies reviewed. (See chart for details) This is a 38-year-old male patient presented to the ED today with an abscess on the left upper chest. Abscess was drained by me as noted in procedures though there was no pus that came out. Only blood came out. Patient was discharged on Bactrim. Instructed to keep the area clean and dry. Tetanus updated. Dragon Disclaimer Dragon Disclaimer This electronic medical record was generated, in whole or in part, using a voice recognition dictation system. Departure Departure Impression: Primary Impression: Abscess or cellulitis of chest wall Disposition: HOME, SELF-CARE Condition: STABLE Referrals: NO PCP (PCP) follow up with your doctor in 1-2 weeks Patient Instructions: Abscess Additional Instructions: You were evaluated in the medicine for an abscess in her left upper chest. We put you on antibiotics, ensure you complete them. Keep the area clean and dry. Follow-up with your doctor in 1-2 weeks. Scripts Sulfamethoxazole/Trimethoprim (BACTRIM DS TABLET) 1 Each Tablet 1 TAB PO BID, #20 TAB Prov: ERIC JONES APRN 04/23/19 ERIC JONES APRN April 23, 2019 14:41
== END 2019-04-23 14:45 | disposition home or self-care (01) ==
LOC: ER 13:42
DX: L02.213 Cutaneous abscess of chest wall (principal); L03.313 Cellulitis of chest wall
CPT/HCPCS: 10160; 99284

== ENCOUNTER 2019-10-11 00:34 | Emergency (ER) | payer SELFPAY ==
[~2019-10-11] VITALS: Ht 177.8 cm; Wt 86.2 kg
== END 2019-10-11 00:55 | disposition left against medical advice (07) ==
LOC: ER 00:34
DX: F32.9 Major depressive disorder, single episode, unspecified (principal); Z53.21 Procedure and treatment not carried out due to patient leaving prior to being seen by health care provider

== ENCOUNTER 2020-04-18 09:00 | Emergency (ER) | payer SELFPAY ==
[~2020-04-18] VITALS: Ht 180.3 cm; Wt 82.5 kg
[2020-04-18 09:08] VITALS: BP 132/90
--- NOTE | 2020-04-18 09:45 | PHYS DOC ---
Past Medical History Past Medical History: Depression, Other Additional Past Medical Histor: BACK/KNEE PAIN Past Surgical History: No Surgical History Smoking Status: Never Smoker Alcohol Use: Heavy Additional Information: DRINKS 3 BEERS DAILY Drug Use: None General Adult EDM: Chief Complaint: HEADACHE HPI: HPI: Patient is a 39 year old male who presents with headache. Patient states that he has been getting headaches for the last 10 years. He gets 1 or 2 headaches a week. This headache did not feel any different than previous headaches. He states that it is now mostly resolved. He states he woke up this morning and had a headache that was 8 out of 10 and now the headache is 2 out of 10. He has not tried to take anything at home for this. He typically deals with his headaches at home. His boss told him to come get checked out. He is requesting Tylenol 3 prescription for his headaches. He denies any fever, neck stiffness, chills, sweats, nausea, vomiting, visual changes, difficulty walking, numbness, weakness. Review of Systems: Review of Systems: General: Denies fever, chills, sweats, fatigue Eyes: Denies drainage, blurred vision HENT: Denies rhinorrhea, sore throat Respiratory: Denies cough, shortness of breath, wheezing Cardiac: Denies edema, palpitations, chest pain GI: Denies abdominal pain, N/V MSK: Denies back pain, neck pain Skin: Denies rash, jaundice Neuro: Denies dizziness reports headache Psychiatric: Denies SI/HI Heart Score: Risk Factors: Risk Factors: DM, Current or recent (<one month) smoker, HTN, HLP, family history of CAD, obesity. Risk Scores: Score 0 - 3: 2.5% MACE over next 6 weeks - Discharge Home Score 4 - 6: 20.3% MACE over next 6 weeks - Admit for Clinical Observation Score 7 - 10: 72.7% MACE over next 6 weeks - Early Invasive Strategies Allergies: Allergies: Allergies Coded Allergies Type Severity Reaction Last Updated Verified No Known Drug Allergies 04/23/19 No Physical Exam: PE: Constitutional: Well developed, well nourished, Cooperative, NAD, non-toxic appearing HEENT: Normocephalic, atraumatic, oropharynx moist, EOMI, PERRL, no drainage from eyes, normal conjunctiva Neck: Supple, normal range of motion, no stridor Cardiovascular: RRR, 2+ radial pulses bilaterally, no edema Respiratory: CTA bilaterally, no respiratory distress, no wheezing/crackles Abdomen: Soft, nontender, nondistended, no masses Skin: Warm, dry, intact Extremities: No obvious deformities Neurologic: Alert and Oriented x3, motor and sensory function grossly normal, no focal deficits, cranial nerves II through XII intact, normal gait Psychologic: Normal affect, normal judgment, normal mood. No SI/HI Current Patient Data: Vital Signs: Vital Signs Date Time Temp Pulse Resp B/P (MAP) Pulse Ox O2 Delivery O2 Flow Rate FiO2 04/18/20 09:08 97.4 57 17 132/90 (104) 95 Room Air 97.4 EKG: EKG: [] Radiology/Procedures: Radiology/Procedures: [] Course & Med Decision Making: Course & Med Decision Making Pertinent Labs and Imaging studies reviewed. (See chart for details) Patient is a 39-year-old male presents to the emergency room with a headache. Headache has mostly resolved. Neurologic exam is normal. These headaches are not different from the headaches he has been having for the last 10 years. Will refer him to primary care. Will provide him with a small prescription for triptan. I have discussed with him that narcotic pain medicine is not indicated for headaches and actually makes headaches worse. Patient states understanding. Patient's test results and vitals while in the ED were fully reviewed and discussed with the patient. Patient is stable and at this time does not need admission to the hospital. We have discussed strict return precautions and the importance of following up with their Primary Care Physician. Patient stated understanding and was given an opportunity to ask any questions. Delfinoon Disclaimer: Dragandre Disclaimer: This electronic medical record was generated, in whole or in part, using a voice recognition dictation system. Departure Departure Impression: Primary Impression: Headache Disposition: HOME, SELF-CARE Condition: IMPROVED Referrals: NO PCP (PCP) GERBER WILLETT MD April 18, 2020 09:45
[2020-04-18] MEDS ORDERED: SUMA25TA3 PO (09:46)
== END 2020-04-18 09:59 | disposition home or self-care (01) ==
LOC: ER 09:00
DX: R51 Headache (principal); F10.20 Alcohol dependence, uncomplicated; Y90.9 Presence of alcohol in blood, level not specified
CPT/HCPCS: 99283